=== PATIENT | female | born 1995 | race Caucasian/White ===

== ENCOUNTER 2017-08-27 22:09 | Emergency (ER) | payer MEDICAID ==
[2017-08-27 22:23] VITALS: BP 141/90; PULSE 102; RESP 18; TEMP 98.6; O2SAT 96
[2017-08-27] MEDS ORDERED: IBUPROFEN 600 MG TAB PO ONE (22:24)
--- NOTE | 2017-08-27 22:41 | EDPHY ---
H & P Stated Complaint: back pain radiating down both legs,>left for 1 week Time Seen by Provider: 08/27/17 22:19 HPI/ROS: CHIEF COMPLAINT: Back pain History by patient HISTORY OF PRESENT ILLNESS: 21-year-old young woman with history of kidney stones in the past presents complaining of bilateral and midline lower back pain for 1 week. Patient states the back pain typically occurs daily and progresses over the course of the day. She says it feels different from her kidney stone which was more right flank pain. She denies any specific trauma however her father notes that the pain seemed to begin after she was was wrestling with her boyfriend and lifting him off the ground. She also notes that she lifts heavy boxes sometimes at work and this makes it work. She does not identify the onset of the pain with any specific injury incident. It is worse when she changes position and especially when she stands. She denies any focal weakness. She says she has had intermittent numbness of her middle toe on each foot, especially when she sits. This is not clearly related to the back pain. She denies any bowel or bladder incontinence. She denies any fever , nausea or vomiting. She tried taking Tylenol or ibuprofen last night for the 1st time with minimal relief. She has an appointment pending with her primary care physician for these symptoms on Wednesday. Patient denies any dysuria, urgency or frequency. She says she is due for her menstrual period shortly. She denies but is not using control. REVIEW OF SYSTEMS: As in HPI, and all other systems reviewed and are negative Source: Patient, Family - Personal History LMP (Females 10-55): 22-28 Days Ago Current Tetanus Diphtheria and Acellular Pertussis (TDAP): Yes Tetanus Vaccine Date: 2012 - Medical/Surgical History Hx Asthma: No Hx Chronic Respiratory Disease: No Hx Diabetes: No Hx Cardiac Disease: No Hx Renal Disease: No Hx Cirrhosis: No Hx Alcoholism: No Hx HIV/AIDS: No Hx Splenectomy or Spleen Trauma: No Other PMH: ADHD,kidney stones - Social History Smoking Status: Never smoked - Physical Exam Exam: General Appearance: Alert, morbidly obese, nontoxic. Eyes: Pupils equal and round no pallor or injection. ENT, Mouth: Mucous membranes moist. Gastrointestinal: Abdomen is soft and nontender, no masses, bowel sounds normal. Neurological: Awake, alert and oriented x 3, no pronator drift, normal gait, no pronator drift, DTRs 2+ and equal bilaterally in knees and ankles, positive low back pain with straight leg raise bilaterally Back: No bony tenderness, positive tenderness over sacral area, mild bilateral CVA tenderness Skin: Warm and dry, no rashes. Musculoskeletal: Neck is supple nontender. Extremities are symmetrical, full range of motion hips and knees Psychiatric: Patient has normal affect, there is no agitation. Constitutional: Initial Vital Signs Temperature (C) 37 C 08/27/17 22:21 Heart Rate 102 H 08/27/17 22:21 Respiratory Rate 18 08/27/17 22:21 Blood Pressure 141/90 H 08/27/17 22:21 O2 Sat (%) 96 08/27/17 22:21 O2 Delivery Mode Room Air Allergies/Adverse Reactions: amoxicillin Allergy (Severe, Verified 08/27/17 22:20) Hives Penicillins Allergy (Severe, Verified 08/27/17 22:20) Home Medications: Medication Instructions Recorded Lidocaine 5% [Lidoderm 5% Patch 1 ea TD DAILY #30 patch 08/27/17 (*)] Naproxen 500 mg PO BID PRN #20 tablet 08/27/17 Medical Decision Making ED Course/Re-evaluation: Otherwise healthy obese 21-year-old presents with low back pain with no history of trauma and no evidence of neurological compromise or cauda equina syndrome. Patient was given ibuprofen in the emergency department. Urinalysis showed no evidence of blood or infection and the patient was not . We will treat her for musculoskeletal back pain with topical lidocaine patches, NSAIDs and Tylenol and she can follow up with primary care physician as scheduled next week. I discussed this with the patient and her family. - Data Points Laboratory Results: 08/27/17 08/27/17 22:55 22:55 Urine Color YELLOW Urine Appearance CLEAR Urine pH 7.0 (5.0-7.5) Ur Specific [place] 1.020 (1.002-1.030) Urine Protein NEGATIVE (NEGATIVE) Urine Ketones NEGATIVE (NEGATIVE) Urine Blood NEGATIVE (NEGATIVE) Urine Nitrate NEGATIVE (NEGATIVE) Urine Bilirubin NEGATIVE (NEGATIVE) Urine Urobilinogen 0.2 EU EU (0.2-1.0) Ur Leukocyte Esterase 1+ H (NEGATIVE) Urine RBC Pending Urine WBC Pending Ur Epithelial Cells Pending Urine Glucose NEGATIVE (NEGATIVE) Urine Test NEGATIVE Medications Given: Discontinued Medications Ibuprofen (Motrin) 600 mg PO EDNOW ONE Stop: 08/27/17 22:25 Last Admin: 08/27/17 22:27 Dose: 600 mg Departure - Departure Disposition: Home, Routine, Self-Care Clinical Impression: Low back pain Qualifiers: Chronicity: acute Back pain laterality: bilateral Sciatica presence: without sciatica Qualified Code(s): M54.5 - Low back pain Condition: Good Instructions: Low Back Strain (ED) Additional Instructions: You were seen by Dr. July Mosquera today. We found no serious cause of back pain today. This will get better over time. You may take Naprosyn and/or Tylenol for the pain and try topical lidocaine patches. Please follow-up with primary 5th care physician if symptoms persist. Return for any worsening or new concerns. Referrals: Adrianne Chaparro DO [Primary Care Provider] - As per Instructions Prescriptions: Lidocaine 5% [Lidoderm 5% Patch (*)] 1 ea TD DAILY #30 patch Naproxen 500 mg PO BID PRN #20 tablet PRN Reason: pain
[2017-08-27 23:22] LABS: COLOR YELLOW; LEUKOCYTE ESTERASE,URINE 1+ (NEGATIVE); NITRITE,URINE NEGATIVE (NEGATIVE)
[2017-08-27 23:34] LABS: RBC,URINE NONE SEEN /hpf (0-3)
[2017-08-27 23:35] LABS: BACTERIA 2+ /hpf (NONE SEEN); MUCUS 3+ /lpf (NONE-1+)
== END 2017-08-27 23:49 | disposition home or self-care (01) ==
LOC: CED 22:09
DX: M54.5 Low back pain (principal)
CPT/HCPCS: 81003-PO; 81015-PO; 81025-PO

== ENCOUNTER 2017-10-11 22:39 | Emergency (ER) | payer MEDICAID ==
[2017-10-11 23:03] VITALS: TEMP 98.4; O2SAT 96
[2017-10-11] MEDS ORDERED: ACETAMINOPHEN 325 MG TAB PO ONE (23:12)
[2017-10-11] MEDS ORDERED: IBUPROFEN 600 MG TAB PO ONE (23:12)
--- NOTE | 2017-10-11 23:20 | EDPHY ---
H & P Time Seen by Provider: 10/11/17 22:44 HPI/ROS: Chief complaint: Sore throat HPI: 22-year-old female whose had a sore throat for the last 3 days. When she goes as well as she has to the wince because it is so painful. In fact she has not been able to eat well for the last 3 days due to this although she has been taking fluids. In point of fact she notes her urine to be normal colored she does not feel lightheaded or weak when she gets up. However there has been no specific exposure with anybody with respect to either mono or strep. Her mother is here with an influenza like illness however this patient does not have any cough though does have some body aches, no rhinorrhea. She has been taking ibuprofen in the mornings with good relief. In fact she felt well enough after the ibuprofen to actually go to work today. No known prior mono. ROS: Constitutional - no fevers or chills. Eyes - no discharge, or injection ENT - right earache, in particular on the right when she swallows. No change in hearing. Respiratory - No Shortness of breath, phlegm, wheezing or pleuritic chest pain. The cough is dry Musculoskeletal - diffuse muscle pains. Integument - no rashes. Neurological - no headache, numbness, tingling, or paresthesias. No focal motor weakness. Immunological - no swelling or lymphadenopathy 10 point ROS otherwise negative Smoking Status: Never smoked Physical Exam: Gen: Well developed, well nourished. Nontoxic. Morbidly obese HEENT: Normocephalic. Ears: TMs are clear. Hearing normal. Eyes: PERRL. No conjunctival injection or pallor. no jaundice. Nose: No nasal discharge. Sinuses are nontender. Throat: Membranes are moist. Oropharynx is red particularly on the right with a tonsil is swollen more so than on the left. It is firm, not fluctuant and it does not cross midline. She is able to phonate normally. There is a scant exudate but no petechiae. There is mild anterior adenopathy although this is a difficult exam due to her habitus. Neck is supple. No meningismus Neck: Trachea is in the ML. No laryngeal tenderness. No notable posterior adenopathy Skin: Good color, without pallor. There is no diaphoresis. Skin is warm and dry , without diaphoresis. Intact without rashes Constitutional: Initial Vital Signs Temperature (C) 36.9 C 10/11/17 22:59 Heart Rate 87 10/11/17 22:59 Respiratory Rate 18 10/11/17 22:59 Blood Pressure 127/88 H 10/11/17 22:59 O2 Sat (%) 96 10/11/17 22:59 O2 Delivery Mode Room Air Allergies/Adverse Reactions: amoxicillin Allergy (Severe, Verified 10/11/17 23:03) Hives Penicillins Allergy (Severe, Verified 10/11/17 23:03) Home Medications: Medication Instructions Recorded Melatonin 10/11/17 Clindamycin 300 mg PO QID 10 Days cap 10/12/17 Medical Decision Making ED Course/Re-evaluation: Clinical exam shows a tonsillar cellulitis. There is no fluctuance to suggest an abscess was performed. As she is strep negative all go ahead and start her on clindamycin. Since she has mono negative as well I will initiate Decadron therapy. Ten days of clindamycin. Close follow-up with ENT recommended for tomorrow. Referred. Differential Diagnosis: Diagnostic considerations include, but are not limited to, the following: URI, sinusitis, pharyngitis, strep pharyngitis, mono, otitis media, pneumonia, allergy, influenza. - Data Points Laboratory Results: Laboratory Results 10/11/17 23:45 10/11/17 10/11/17 10/11/17 Unknown 23:45 23:45 WBC 9.77 10^3/uL H 10^3/uL (3.80-9.50) RBC 4.69 10^6/uL 10^6/uL (4.18-5.33) Hgb 13.1 g/dL g/dL (12.6-16.3) Hct 39.7 % % (38.0-47.0) MCV 84.6 fL fL (81.5-99.8) MCH 27.9 pg pg (27.9-34.1) MCHC 33.0 g/dL g/dL (32.4-36.7) RDW 13.3 % % (11.5-15.2) Plt Count 372 10^3/uL 10^3/uL (150-400) MPV 10.1 fL fL (8.7-11.7) Neut % (Auto) 57.7 % % (39.3-74.2) Lymph % (Auto) 33.5 % % (15.0-45.0) [place] % (Auto) 6.9 % % (4.5-13.0) Eos % (Auto) 1.1 % % (0.6-7.6) Baso % (Auto) 0.5 % % (0.3-1.7) Nucleat RBC Rel Count 0.0 % % (0.0-0.2) Absolute Neuts (auto) 5.64 10^3/uL 10^3/uL (1.70-6.50) Absolute Lymphs (auto) 3.27 10^3/uL H 10^3/uL (1.00-3.00) Absolute Monos (auto) 0.67 10^3/uL 10^3/uL (0.30-0.80) Absolute Eos (auto) 0.11 10^3/uL 10^3/uL (0.03-0.40) Absolute Basos (auto) 0.05 10^3/uL 10^3/uL (0.02-0.10) Absolute Nucleated RBC 0.00 10^3/uL 10^3/uL (0-0.01) Immature Gran % 0.3 % % (0.0-1.1) Immature Gran # 0.03 10^3/uL 10^3/uL (0.00-0.10) Monoscreen NEGATIVE (NEGATIVE) Group A Strep Screen Group A Strep DNA Pending 10/11/17 22:50 WBC RBC Hgb Hct MCV MCH MCHC RDW Plt Count MPV Neut % (Auto) Lymph % (Auto) [place] % (Auto) Eos % (Auto) Baso % (Auto) Nucleat RBC Rel Count Absolute Neuts (auto) Absolute Lymphs (auto) Absolute Monos (auto) Absolute Eos (auto) Absolute Basos (auto) Absolute Nucleated RBC Immature Gran % Immature Gran # Monoscreen Group A Strep Screen NEGATIVE (NEGATIVE) Group A Strep DNA Medications Given: Discontinued Medications Acetaminophen (Tylenol) 650 mg PO EDNOW ONE Stop: 10/11/17 23:13 Last Admin: 10/11/17 23:22 Dose: 650 mg Clindamycin (Clindamycin) 300 mg PO EDNOW ONE PRN Reason: Protocol Stop: 10/12/17 00:24 Last Admin: 10/12/17 00:31 Dose: 300 mg Clindamycin (Clindamycin) 300 mg PO EDNOW ONE PRN Reason: Protocol Stop: 10/12/17 00:26 Last Admin: 10/12/17 00:50 Dose: 300 mg Ibuprofen (Motrin) 400 mg PO EDNOW ONE Stop: 10/11/17 23:13 Last Admin: 10/11/17 23:22 Dose: 400 mg Departure - Departure Disposition: Home, Routine, Self-Care Clinical Impression: Cellulitis of tonsil Condition: Good Instructions: Clindamycin (By mouth), Peritonsillar Abscess (ED) Additional Instructions: You have been prescribed clindamycin. The next dose is at 7:00 a.m. While on clindamycin it is a good idea to take yogurt with active cultures, twice daily Take ibuprofen Tylenol for pain relief Call [facility] tomorrow for follow-up evaluation, as sometimes these progressed abscess and need to be drained Referrals: Adrianne Chaparro DO [Primary Care Provider] - As per Instructions Jocelyn Rincon MD [Medical Doctor] - 1 day without fail Stand Alone Forms: Work Excuse Prescriptions: Clindamycin 300 mg PO QID 10 Days cap
[2017-10-12] MEDS ORDERED: CLINDAMYCIN 150 MG CAP PO ONE ×2 (00:23→00:25)
[2017-10-12] MEDS ORDERED: DEXAMETHASONE 4 MG TAB PO ONE (00:34)
[2017-10-12 00:50] LABS: % IMMATURE GRANULYOCYTES 0.3 % (0.0-1.1); ABSOLUTE IMMATURE GRANULOCYTES 0.03 10^3/uL (0.00-0.10); ADD DIFF? NO; ADD MORPH? NO; ADD SCAN? NO; ATYPICAL LYMPHOCYTE FLAG 10 (0-99); FRAGMENT RBC FLAG 0 (0-99); HEMATOCRIT 39.7 % (38.0-47.0); HEMOGLOBIN 13.1 g/dL (12.6-16.3); LEFT SHIFT FLG 0 (0-99); LIPEMIA HEMOLYSIS FLAG 80 (0-99); MEAN CELL HEMOGLOBIN 27.9 pg (27.9-34.1); MEAN CELL VOLUME 84.6 fL (81.5-99.8); MEAN PLATELET VOLUME 10.1 fL (8.7-11.7); PLATELET CLUMPS FLAG 0 (0-99); PLATELET COUNT 372 10^3/uL (150-400); RED BLOOD CELL COUNT 4.69 10^6/uL (4.18-5.33); RED CELL DISTRIBUTION WIDTH 13.3 % (11.5-15.2)
[2017-10-12 00:59] VITALS: BP 150/90; PULSE 94; RESP 16
== END 2017-10-12 00:59 | disposition home or self-care (01) ==
LOC: CED 22:39
DX: J36 Peritonsillar abscess (principal)
CPT/HCPCS: 85025-PO; 86308-PO; 87880-PO

== ENCOUNTER → 2019-02-21 | Outpatient (CLI) | payer MEDICAID | LOC: CIMAGING 13:03 | PROVIDERS: ATTEND Family Medicine | DX: M25.512 Pain in left shoulder (principal) | CPT/HCPCS: 73030-PO ==